=== PATIENT | female | born 1985 | race Two or more races ===

== ENCOUNTER 2018-11-27 19:03 | Inpatient (IN) | payer OTHER ==
[~2018-11-27] VITALS: Ht 154.9 cm; Wt 54.4 kg
[2018-11-27] MEDS ORDERED: OXYTOCIN 30 UNIT/500 ML PREMIX 500 ML IV PRN (19:15)
[2018-11-27] MEDS ORDERED: 0.9 % SODIUM CHLORIDE 10 ML DISP.SYRIN. IV PRN (19:15)
[2018-11-27] MEDS ORDERED: BUTORPHANOL 2 MG/ML VIAL. IV PRN ×2 (19:15)
[2018-11-27] MEDS ORDERED: ONDANSETRON PF 4 MG/2 ML VIAL. IV PRN (19:15)
[2018-11-27] MEDS ORDERED: LIDOCAINE 1% PF 30 ML VIAL. INJ PRN (19:15)
[2018-11-27] MEDS ORDERED: IBUPROFEN 400 MG TABLET. PO PRN (19:15)
[2018-11-27] MEDS ORDERED: MAG HYDROX/ALUMINUM HYD/SIMETH 30 ML ORAL.SUSP PO PRN (19:15)
[2018-11-27] MEDS ORDERED: TERBUTALINE 1 MG/ML VIAL. SQ PRN (19:15)
[2018-11-27 19:55] LABS: BILIRUBIN,URINE NEGATIVE (NEG); CLARITY,URINE CLEAR; COLOR,URINE YELLOW; NITRITE,URINE NEGATIVE (NEG); PROTEIN,URINE NEGATIVE (NEG-TRACE); UROBILINOGEN,URINE 0.2 mg/dL (0.2 mg/dL)
[2018-11-27] MEDS ORDERED: DINOPROSTONE 10 MG SUPP.VAG VG ONE (20:00)
[2018-11-27] MEDS ORDERED: AMPICILLIN SODIUM 2 GM in IV NORMAL SALINE 100ML 100 ML IV ONE (20:00)
[2018-11-27 20:01] LABS: BACTERIA,URINE 0 /HPF (0-FEW); RBC,URINE 0 /HPF (0-2); SQUAMOUS EPITHELIAL CELL,UR OCC /LPF; WBC,URINE OCC /HPF (0-4)
[2018-11-27 20:02] LABS: BARBITURATES NEG (NEG); BENZODIAZEPINES NEG (NEG); CANNABINOIDS NEG (NEG); COCAINE NEG (NEG); METHADONE NEG (NEG); OPIATES NEG (NEG); PHENCYCLIDINE NEG (NEG)
[2018-11-27 20:03] LABS: AMPHETAMINE/METHAMPHETAMINE NEG (NEG)
[2018-11-27] MEDS: IV RINGERS,LACTATED 1000ML 1,000 ML IV PRN (20:24)
[2018-11-27 20:44] LABS: BASO % 0 % (0-3); EOS # 0.1 x10^3/uL (0.0-0.7); EOS % 1 % (0-3); HEMATOCRIT 35.7 % (36.0-47.0); HEMOGLOBIN 11.4 g/dL (12.0-15.5); LYMPH # 2.5 x10^3/uL (1.0-4.8); LYMPH % 27 % (24-48); MEAN CORPUSCULAR HEMOGLOBIN 26 pg (25-35); MEAN CORPUSCULAR HGB CONC 32 g/dL (31-37); MEAN CORPUSCULAR VOLUME 80 fL (79-100); MONO # 0.8 x10^3/uL (0.0-1.1); MONO % 9 % (0-9); NEUT # 5.8 x10^3uL (1.8-7.7); NEUT % 63 % (31-73); PLATELET COUNT 305 x10^3/uL (140-400); RED BLOOD COUNT 4.46 x10^6/uL (3.50-5.40); RED CELL DISTRIBUTION WIDTH 14.1 % (11.5-14.5); WHITE BLOOD COUNT 9.2 x10^3/uL (4.0-11.0)
[2018-11-27 21:46] VITALS: BP 137/72
[2018-11-28] MEDS ORDERED: AMPICILLIN SODIUM 1 GM in IV NORMAL SALINE 50ML 50 ML IV SCH ×2
--- NOTE | 2018-11-28 01:11 | NUR ---
started Ampicillan at 0100 instead of 0600, due to patient possibly starting in early labor
[2018-11-28] MEDS: fentaNYL PF VIAL 100 MCG/2 ML VIAL IV PRN ×3 (01:29→10:47)
[2018-11-28] MEDS: ACETAMINOPHEN 325 MG TABLET. PO PRN (04:32)
[2018-11-28] MEDS: AMPICILLIN SODIUM 1 GM in IV NORMAL SALINE 50ML 50 ML IV SCH ×2 (04:33→09:59)
[2018-11-28] MEDS ORDERED: AMPICILLIN SODIUM 2 GM in IV NORMAL SALINE 100ML 100 ML IV ONE (06:00)
[2018-11-28] MEDS ORDERED: OXYTOCIN 30 UNIT/500 ML PREMIX 500 ML IV PRN ×2 (07:00→14:30)
[2018-11-28] MEDS: IV RINGERS,LACTATED 1000ML 1,000 ML IV PRN (09:57)
[2018-11-28] MEDS ORDERED: fentaNYL PF VIAL 100 MCG/2 ML VIAL EPI PRN (10:30)
[2018-11-28] MEDS ORDERED: ROPIVacaine 0.2% PF 10 ML VIAL. EPID PRN (10:30)
[2018-11-28] MEDS ORDERED: NALOXONE 0.4 MG/ML VIAL. IV PRN (10:30)
[2018-11-28] MEDS ORDERED: L&D EPIDURAL SYRINGE 50 ML EPID PRN (10:30)
[2018-11-28] MEDS ORDERED: ePHEDrine PF IN SALINE 50 MG/10 ML SYRINGE. IV PRN (10:30)
[2018-11-28] MEDS ORDERED: ONDANSETRON PF 4 MG/2 ML VIAL. IV PRN (10:30)
[2018-11-28] MEDS ORDERED: IV RINGERS,LACTATED 1000ML 1,000 ML IV SCH (10:30)
[2018-11-28] MEDS ORDERED: OXYTOCIN PREMIX 30 UNIT/500 ML BAG. IV ONE (13:00)
--- NOTE | 2018-11-28 14:25 | PDOC1 ---
OB - History Hx of Present Care: Good Care Ultrasounds: Abnormal US findings (IUGR/oligo) Obstetrical Complications: Growth Restriction Medical Complications: None Past Family/Social History * Past Medical, Surgical, Family and Obstetric Histories reviewed from chart. Rubella: Immune RPR/VDRL: Negative HBsAG: Negative OB - Chief Complaint & HPI Date of Admission: Date of Admission: November 27, 2018 at 19:03 Chief Complaint/History : 1 Para: 0 EDC: Dec 23, 2018 Reason for admission: induction of labor, other (IUGR/oligo) Indication for : other Admission Nurse Assessment Rev: Yes OB - Admission Exam Physical Exam Vitals: VS - Last 72 Hours, by Label Date Time Temp Pulse Resp B/P (MAP) Pulse Ox O2 Delivery O2 Flow Rate FiO2 11/28/18 10:49 16 95 11/28/18 10:47 16 95 11/28/18 09:13 16 95 Room Air 11/28/18 01:50 18 Room Air 11/28/18 01:29 18 Room Air 11/27/18 21:46 97.5 76 18 137/72 (93) 95 Room Air 97.5 HEENT: Normal, Nasal Mucosa Normal, Oropharynx Normal, Moist Membranes, Fontanelles Normal Heart: Regular Rate Lungs: Clear, Equal Abdomen: Gravid Cervical Dilatation: Fingertip Effacement: 50% Station: -2 Membranes: Intact Accelerations: Accelerations Present Contractions on Admission: None Assessment/Plan Assessment/Plan IUIGR jOLIGO Induction ACSVD VALERIE SINGH MD November 28, 2018 14:25
--- NOTE | 2018-11-28 14:27 | PDOC ---
VAGINAL DELIVERY DATE DATE: 11/28/18 TIME: 14:25 : 1 EDC: Dec 23, 2018 VAGINAL DELIVERY: VTX VACCUM ASSISTED: No SEX: Female WEIGHT 4/12 Nuchal Cord: No Amniotic Fluid: Clear PAIN: Epidural EPISIOTOMY: No EXTENSION: No EBL 300cc COMPLICATIONS None CONDITION Stabl Signs of Intrauterine Infectio: None Shoulder Dystocia: No DIAGNOSIS TIVALERIE WEINBERG MD November 28, 2018 14:27
[2018-11-28] MEDS ORDERED: MAG HYDROX/ALUMINUM HYD/SIMETH 30 ML ORAL.SUSP PO PRN (14:30)
[2018-11-28] MEDS ORDERED: diphenhydrAMINE HCL 25 MG CAPSULE PO PRN (14:30)
[2018-11-28] MEDS ORDERED: IBUPROFEN 400 MG TABLET. PO PRN (14:30)
[2018-11-28] MEDS ORDERED: SIMETHICONE 80 MG TAB.CHEW PO PRN (14:30)
[2018-11-28] MEDS ORDERED: 0.9 % SODIUM CHLORIDE 10 ML DISP.SYRIN. IV PRN (14:30)
[2018-11-28] MEDS ORDERED: HYDROCORTISONE 1% TOPICAL OINTMENT 30GM TUBE. TP PRN (14:30)
[2018-11-28] MEDS ORDERED: MAGNESIUM HYDROXIDE 2,400 MG/30 ML ORAL.SUSP. PO PRN (14:30)
[2018-11-28] MEDS ORDERED: ACETAMINOPHEN 325 MG TABLET. PO PRN (14:30)
[2018-11-28] MEDS ORDERED: ZOLPIDEM 5 MG TABLET. PO PRN (14:30)
[2018-11-28] MEDS ORDERED: PHENYLEPH/MINERAL OIL/PETROLAT RECTAL OINTMENT 28GM TUBE. RC PRN (14:30)
[2018-11-28] MEDS ORDERED: BENZOCAINE 20% TOPICAL AEROSOL SPRAY 57GM CAN. TP PRN (14:30)
[2018-11-28] MEDS: IBUPROFEN 400 MG TABLET. PO SCH (15:53)
[2018-11-28] MEDS ORDERED: FERROUS SULFATE 325 MG TABLET. PO SCH (17:00)
[2018-11-28 21:20] VITALS: BP 144/79
[2018-11-28] MEDS: CEPHALEXIN 250 MG CAPSULE. PO SCH (21:55)
[2018-11-29 01:41] VITALS: BP 138/88
[2018-11-29 05:41] VITALS: BP 149/95
[2018-11-29] MEDS: IBUPROFEN 400 MG TABLET. PO SCH ×2 (06:20→15:13)
--- NOTE | 2018-11-29 08:10 | PDOC ---
OB Progress Note Date of Service 11/29/18 Time of Evaluation 0808 Notes Pt. feeling well. No complaints. Lab Laboratory Tests Test 11/27/18 19:40 11/27/18 20:00 11/28/18 14:40 11/29/18 03:10 Urine Color Yellow Urine Clarity Clear Urine pH 6.0 Urine Specific [place] 1.010 Urine Protein Negative mg/dL (NEG-TRACE) Urine Glucose (UA) Negative mg/dL (NEG) Urine Ketones (Stick) Negative mg/dL (NEG) Urine Blood Negative (NEG) Urine Nitrite Negative (NEG) Urine Bilirubin Negative (NEG) Urine Urobilinogen Dipstick 0.2 mg/dL (0.2 mg/dL) Urine Leukocyte Esterase Negative (NEG) Urine RBC 0 /HPF (0-2) Urine WBC Occ /HPF (0-4) Urine Squamous Epithelial Cells Occ /LPF Urine Bacteria 0 /HPF (0-FEW) Urine Opiates Screen Neg (NEG) Urine Methadone Screen Neg (NEG) Urine Barbiturates Neg (NEG) Urine Phencyclidine Screen Neg (NEG) Urine Amphetamine/Methamphetamine Neg (NEG) Urine Benzodiazepines Screen Neg (NEG) Urine Cocaine Screen Neg (NEG) Urine Cannabinoids Screen Neg (NEG) Urine Ethyl Alcohol Neg (NEG) White Blood Count 9.2 x10^3/uL (4.0-11.0) Red Blood Count 4.46 x10^6/uL (3.50-5.40) Hemoglobin 11.4 g/dL (12.0-15.5) Hematocrit 35.7 % (36.0-47.0) 30.3 % (36.0-47.0) Mean Corpuscular Volume 80 fL (79-100) Mean Corpuscular Hemoglobin 26 pg (25-35) Mean Corpuscular Hemoglobin Concent 32 g/dL (31-37) Red Cell Distribution Width 14.1 % (11.5-14.5) Platelet Count 305 x10^3/uL (140-400) Neutrophils (%) (Auto) 63 % (31-73) Lymphocytes (%) (Auto) 27 % (24-48) Monocytes (%) (Auto) 9 % (0-9) Eosinophils (%) (Auto) 1 % (0-3) Basophils (%) (Auto) 0 % (0-3) Neutrophils # (Auto) 5.8 x10^3uL (1.8-7.7) Lymphocytes # (Auto) 2.5 x10^3/uL (1.0-4.8) Monocytes # (Auto) 0.8 x10^3/uL (0.0-1.1) Eosinophils # (Auto) 0.1 x10^3/uL (0.0-0.7) Basophils # (Auto) 0.0 x10^3/uL (0.0-0.2) Treponema pallidum Antibody Nonreactive (Nonreactive) Glucose (Fingerstick) 63 mg/dL (70-99) Laboratory Tests Test 11/28/18 14:40 11/29/18 03:10 Glucose (Fingerstick) 63 mg/dL (70-99) Hematocrit 30.3 % (36.0-47.0) Medications Current Medications Sodium Chloride (Normal Saline Flush) 3 ml QSHIFT PRN IV AFTER MEDS AND BLOOD DRAWS; Start 11/27/18 at 19:15 Ringer's Solution 1,000 ml @ 125 mls/hr Q8H PRN IV hydration Last administered on 11/28/18at 09:57; Start 11/27/18 at 19:15; Stop 11/28/18 at 18:15; Status DC Butorphanol Tartrate (Stadol) 1 mg PRN Q1HR PRN IV mild to moderate labor pain; Start 11/27/18 at 19:15; Stop 11/28/18 at 18:15; Status DC Butorphanol Tartrate (Stadol) 2 mg PRN Q1HR PRN IV Severe labor pain; Start 11/27/18 at 19:15; Stop 11/28/18 at 18:15; Status DC Fentanyl Citrate (Fentanyl 2ml Vial) 100 mcg PRN Q30MIN PRN IV Severe pain Last administered on 11/28/18at 10:47; Start 11/27/18 at 19:15; Stop 11/28/18 at 18:15; Status DC Acetaminophen (Tylenol) 650 mg PRN Q6HRS PRN PO MILD PAIN / TEMP Last administered on 11/28/18at 04:32; Start 11/27/18 at 19:15 Ondansetron HCl (Zofran) 4 mg PRN Q4HRS PRN IV NAUSEA/VOMITING; Start 11/27/18 at 19:15 Al Hydroxide/Mg Hydroxide (Mylanta Plus Xs) 30 ml PRN Q4HRS PRN PO HEARTBURN / GAS; Start 11/27/18 at 19:15 Terbutaline Sulfate (Brethine) 0.25 mg 1X PRN PRN SQ SEE COMMENTS; Start 11/27/18 at 19:15; Stop 11/28/18 at 18:15; Status DC Lidocaine HCl (Xylocaine 1% Pf 30ml Vial) 30 ml 1X PRN PRN INJ SEE COMMENTS; Start 11/27/18 at 19:15; Stop 11/29/18 at 19:14 Ampicillin Sodium 2 gm/Sodium Chloride 100 ml @ 200 mls/hr 1X ONCE IV Last administered on 11/28/18at 01:09; Start 11/27/18 at 20:00; Stop 11/28/18 at 18:15; Status DC Ampicillin Sodium 1 gm/Sodium Chloride 50 ml @ 100 mls/hr Q4H IV ; Start 11/28/18 at 00:00; Stop 11/28/18 at 00:00; Status DC Oxytocin/Sodium Chloride 500 ml @ 0 mls/hr CONT PRN IV SEE I/O RECORD; Start 11/28/18 at 07:00; Stop 11/28/18 at 18:15; Status DC Oxytocin/Sodium Chloride 500 ml @ 0 mls/hr CONT PRN PRN IV Post delivery bleeding; Start 11/27/18 at 19:15; Stop 11/28/18 at 18:15; Status DC Ibuprofen (Motrin) 800 mg PRN Q6HRS PRN PO PAIN; Start 11/27/18 at 19:15; Stop 11/28/18 at 14:25; Status DC Dinoprostone (Cervidil) 10 mg 1X ONCE VG Last administered on 11/27/18at 20:23; Start 11/27/18 at 20:00; Stop 11/28/18 at 18:15; Status DC Ampicillin Sodium 2 gm/Sodium Chloride 100 ml @ 200 mls/hr 1X ONCE IV ; Start 11/28/18 at 06:00; Stop 11/28/18 at 18:15; Status DC Ampicillin Sodium 1 gm/Sodium Chloride 50 ml @ 100 mls/hr Q4H IV Last administered on 11/28/18at 09:59; Start 11/28/18 at 10:00; Stop 11/28/18 at 15:55; Status DC Ringer's Solution 1,000 ml @ 1,000 mls/hr Q1H IV ; Start 11/28/18 at 10:30; Stop 11/28/18 at 11:29; Status DC Ephedrine Sulfate (ePHEDrine PF IN SALINE SYRINGE) 10 mg PRN Q2MIN PRN IV IF SBP<90; Start 11/28/18 at 10:30; Stop 11/28/18 at 18:15; Status DC Naloxone HCl (Narcan) 0.4 mg PRN Q1MIN PRN IV SEE COMMENTS; Start 11/28/18 at 10:30 Fentanyl Citrate (Fentanyl 2ml Vial) 100 mcg PRN 1X PRN EPI FOR ANESTHESIA; Start 11/28/18 at 10:30; Stop 11/28/18 at 18:15; Status DC Ropivacaine/ Fentanyl/NS 50 ml @ 14 mls/hr CONT PRN EPID PAIN Last administered on 11/28/18at 10:49; Start 11/28/18 at 10:30; Stop 11/28/18 at 18:15; Status DC Ondansetron HCl (Zofran) 4 mg PRN Q6HRS PRN IV NAUSEA/VOMITING; Start 11/28/18 at 10:30 Ropivacaine (Naropin 0.2%) 20 ml PRN 1X PRN EPID SEE COMMENTS Last administered on 11/28/18at 10:49; Start 11/28/18 at 10:30; Stop 11/28/18 at 10:49; Status DC Sodium Chloride (Normal Saline Flush) 10 ml QSHIFT PRN IV AFTER MEDS AND BLOOD DRAWS; Start 11/28/18 at 14:30 Oxytocin/Sodium Chloride 500 ml @ 62.5 mls/hr CONT PRN IV SEE I/O RECORD; Start 11/28/18 at 14:30; Stop 11/28/18 at 18:15; Status DC Acetaminophen (Tylenol) 650 mg PRN Q6HRS PRN PO MILD PAIN / TEMP; Start 11/28/18 at 14:30 Ibuprofen (Motrin) 800 mg Q8HRS PO Last administered on 11/29/18at 06:20; Start 11/28/18 at 15:00 Ibuprofen (Motrin) 800 mg PRN Q8HRS PRN PO INFLAMMATION/PAIN PREVENTION; Start 11/28/18 at 14:30 Magnesium Hydroxide (Milk Of Magnesia) 2,400 mg PRN DAILY PRN PO CONSTIPATION; Start 11/28/18 at 14:30 Al Hydroxide/Mg Hydroxide (Mylanta Plus Xs) 30 ml PRN Q4HRS PRN PO HEARTBURN / GAS; Start 11/28/18 at 14:30 Simethicone (Gas-X) 80 mg PRN AFTMEALHC PRN PO GAS / BLOATING; Start 11/28/18 at 14:30 Diphenhydramine HCl (Benadryl) 25 mg PRN Q6HRS PRN PO ITCHING; Start 11/28/18 at 14:30 Benzocaine (Americaine) 1 spray PRN QID PRN TP TOPICAL PAIN; Start 11/28/18 at 14:30 Phenyleph/Shark Oil/Min Oil/Petrol (Preparation H) 1 nael PRN QID PRN RC RECTAL PAIN; Start 11/28/18 at 14:30 Hydrocortisone (Cortaid) 1 nael PRN QID PRN TP PERINEAL PAIN; Start 11/28/18 at 14:30 Ferrous Sulfate (Feosol) 325 mg BIDWMEALS PO ; Start 11/28/18 at 17:00; Stop 11/28/18 at 18:15; Status DC Zolpidem Tartrate (Ambien) 5 mg PRN QHS PRN PO INSOMNIA, MAY REPEAT X1; Start 11/28/18 at 14:30 Info (Do NOT chart on this placeholder) 1 ea 1X PRN PRN MC SEE COMMENTS; Start 11/28/18 at 14:30 Cephalexin HCl (Keflex) 500 mg TID PO Last administered on 11/28/18at 21:55; Start 11/28/18 at 16:00 Exam Abd: soft, non tender, fundus firm Assessment PPD#1 s/p Plan of Care: Continue current Tx, Mgmt EDY RODRIGUEZ Jr, MD November 29, 2018 08:10
[2018-11-29 11:20] VITALS: BP 129/82
[2018-11-29 11:25] VITALS: BP 118/71
[2018-11-29] MEDS: CEPHALEXIN 250 MG CAPSULE. PO SCH ×3 (11:45→20:44)
[2018-11-29] MEDS: ACETAMINOPHEN 325 MG TABLET. PO PRN ×2 (11:46→19:35)
[2018-11-29 16:20] VITALS: BP_SYST 119
[2018-11-29] MEDS ORDERED: HYDROcodone/APAP 5/325MG 1 TAB TABLET PO PRN (20:30)
[2018-11-29] MEDS: HYDROcodone/APAP 5/325MG 1 TAB TABLET PO PRN (20:45)
[2018-11-29 23:15] VITALS: BP 137/87
[2018-11-30] MEDS: HYDROcodone/APAP 5/325MG 1 TAB TABLET PO PRN (01:51)
[2018-11-30 06:18] VITALS: BP 136/85
[2018-11-30] MEDS: CEPHALEXIN 250 MG CAPSULE. PO SCH ×2 (09:07→14:16)
[2018-11-30] MEDS: IBUPROFEN 400 MG TABLET. PO SCH (09:09)
--- NOTE | 2018-11-30 09:48 | PDOC3 ---
OB DISCHARGE SUMMARY DATE OF ADMISSION: 11/28/18 DATE OF DISCHARGE: 11/30/18 REASON FOR ADMISSION: Onset of labor INTRAPARTUM PROCEDURES: Spontanous Vag Deliv DISCHARGE DIAGNOSIS: Term Delivered DISCHARGE INFORMATION: Activity (ad bryson), Diet (regular), Instructions (pelvic rest x 6 wks) HOSPITAL COURSE Term gestation delivered vaginally without complications. EDY RODRIGUEZ Jr, MD November 30, 2018 09:48
--- NOTE | 2018-11-30 09:50 | DISCH ---
DISCHARGE INSTRUCTIONS Condition on Discharge Condition on Discharge: Stable Activity After Discharge Activity Instructions for Disc: Activity as tolerated Lifting Instructions after Dis: No heavy lifting Driving Instructions after Dis: Do not drive today Diet after Discharge Diet after Discharge: Regular Contacting the DRMichael after DC Call your doctor for: Concerns you may have Follow-Up Follow up with: Dr. Sarmiento in 1-2 weeks EDY RODRIGUEZ Jr, MD November 30, 2018 09:49
[2018-11-30] MEDS ORDERED: AMOX1TAB61 PO (09:51)
[2018-11-30] MEDS ORDERED: IBUP-1027 PO (09:51)
--- NOTE | 2018-11-30 16:43 | NUR ---
pt discharged to boarder status with infant in bili bed in [facility] . Mom given breast pump and instructed on use and started her pumping. Dad left to purchase pt's meds and will return soon.
--- NOTE | 2018-12-01 15:05 | PATHOLOGY ---
[facility] Accession Number: [id number] . 01 Material submitted: . placenta - PLACENTA . 01 Clinical history: . Oligohydramnios, IUGR Gestational age 37.5 weeks; -0-0-0-0; birthweight 2165 g; nuchal cord around neck x1, loose . 02 Diagnosis: 364 gram early term placenta of an estimated 37-38 weeks gestation with attached membranes and umbilical cord: - Placental infarcts (2), largest measuring up to 1.5 cm. - Intervillous thrombus. - Nuchal cord (clinical). . (JPM:mml; 12/01/2018) [facility]/12/01/2018 . 02 Comment: The placenta is somewhat small for estimated gestational age and is at approximately the 10th percentile. There is no evidence of an acute chorioamnionitis or villitis. . (JPM:mml; 12/01/2018) . 02 Electronically signed: . Mando Cordero MD, Pathologist NPI- [id number] . 01 Gross description: . The specimen is received in formalin, labeled "Kareem Steven, placenta". Received is a ordaz placenta with attached membranes and umbilical cord with a trimmed placental weight of 364 g and measuring 14.8 x 13.9 x 2.6 cm in greatest dimensions. The membranes are pale nieves and translucent in appearance, and the site of membrane rupture is at the placental margin. The surface is intact displaying a normal arborizing vasculature pattern, as well as a focus of fibrin deposition on the periphery measuring 1.3 cm. The trivascular umbilical cord measures 38.6 cm in length by up to 1.3 cm in diameter and inserts eccentrically, 3.4 cm from the closest placental margin. The umbilical cord is white-nieves in appearance with moderate helical twisting. The maternal surface is intact and complete; a slight amount of adherent blood coagulum is seen on the surface. Sectioning reveals red-brown cut surfaces displaying two lesions, one of which is full thickness, measuring 1.4 and 1.5 cm, which encompass less than 5% of the total placental volume. The specimen is submitted representatively as follows: . A1 umbilical cord and surface vessels A2 membrane roll and peripheral placental segment with fibrin deposition A3 full-thickness placental cross section of normal-appearing placental parenchyma A4-A5 food products sales representative sections of each lesion. (CAA; 11/30/2018) QAC/QAC . 02 Pathologist provided ICD-10: O41.03X1, Z3A.37, Z37.0 . 02 CPT . 426196 Specimen Comment: A courtesy copy of this report has been sent to Specimen Comment: [phone]. Specimen Comment: Report sent to Performed at: 01 [facility] [address], [place] [id number] MD Gopi Kearney MD Phone: [phone] Performed at: 02 [facility] [address] [place], [place] [id number] MD Mando Cordero MD Phone: [phone]
== END 2018-11-30 16:47 | disposition home or self-care (01) | DRG 806 ==
LOC: 3 SO LND 19:03 → 3 NORTH 11-28 17:24
PROVIDERS: ADMIT Specialist; ATTEND Specialist
PROC: 10E0XZZ Delivery of Products of Conception, External Approach (ICD-10-PCS; principal; 2018-11-28)
PROC: 3E0R3BZ Introduction of Anesthetic Agent into Spinal Canal, Percutaneous Approach (ICD-10-PCS; 2018-11-28)
PROC: 00HU33Z Insertion of Infusion Device into Spinal Canal, Percutaneous Approach (ICD-10-PCS; 2018-11-28)
PROC: 3E0P7VZ Introduction of Hormone into Female Reproductive, Via Natural or Artificial Opening (ICD-10-PCS; 2018-11-28)
DX: O36.5930 Maternal care for other known or suspected poor fetal growth, third trimester, not applicable or unspecified (principal); O41.03X0 Oligohydramnios, third trimester, not applicable or unspecified; Z37.0 Single live birth; Z3A.37 37 weeks gestation of pregnancy
CPT/HCPCS: 36415; 80307; 81001; 82962; 85014; 85025; 86592; 86850; 86900; 86901; 87653; 88307; J0290; J2590; J2795; J3010; J7120